=== PATIENT | female | born 1980 ===

== ENCOUNTER 2020-12-15 05:00 | Day surgery (SDC) | payer OTHER ==
[~2020-12-15 05:00] MED LIST: HYDRODIURIL12.5 MG PO
== END 2020-12-15 12:19 | disposition home or self-care (01) ==
LOC: CIR.AMB 05:00
PROVIDERS: ATTEND Obstetrics & Gynecology Gynecologic Oncology
DX: N89.0 Mild vaginal dysplasia (principal); Z20.828 Contact with and (suspected) exposure to other viral communicable diseases

== ENCOUNTER 2020-12-19 14:52 | Emergency (ER) | payer OTHER ==
[~2020-12-19] VITALS: Ht 188 cm; Wt 79.4 kg
[2020-12-19] MEDS ORDERED: MACRODANTIN100 M1 PO (22:24)
== END 2020-12-19 22:57 | disposition home or self-care (01) ==
LOC: ER 14:52
DX: R51.9 Headache, unspecified (principal); C53.0 Malignant neoplasm of endocervix; N39.0 Urinary tract infection, site not specified; G89.18 Other acute postprocedural pain